=== PATIENT | female | born 1995 | race Caucasian/White ===

== ENCOUNTER 2016-12-12 21:14 | Outpatient (CLI) | payer OTHER | END 2016-12-12 22:50 | disposition home or self-care (01) | LOC: GENOP 21:14 | DX: O42.913 Preterm premature rupture of membranes, unspecified as to length of time between rupture and onset of labor, third trimester (principal); Z3A.34 34 weeks gestation of pregnancy | CPT/HCPCS: 82731; 83518; G0463 ==

== ENCOUNTER 2017-01-09 21:26 | Observation (INO) | payer OTHER ==
[2017-01-09 22:54] LABS: HEMOGLOBIN 10.9 gm/dl (12.3-15.3); RED BLOOD COUNT 3.87 M/UL (4.00-5.10); WHITE BLOOD COUNT 10.6 K/UL (4.5-11.0)
== END 2017-01-10 09:30 | disposition home or self-care (01) ==
LOC: OB 21:26 → GENOP 21:26 → OB 22:27 → GENOP 22:27 → OB 01-10 09:30 → GENOP 01-10 09:30 → EDSTATUS 01-11 13:39
PROVIDERS: Obstetrics & Gynecology; ADMIT Obstetrics & Gynecology
DX: O75.2 Pyrexia during labor, not elsewhere classified (principal); O99.89 Other specified diseases and conditions complicating pregnancy, childbirth and the puerperium; M54.5 Low back pain; Z3A.38 38 weeks gestation of pregnancy; Z88.0 Allergy status to penicillin
CPT/HCPCS: 36415; 81001; 85025; 96360; 96361; G0378; G0379; G0463; J7120

== ENCOUNTER 2017-01-29 04:49 | Inpatient (IN) | payer OTHER ==
[~2017-01-29] VITALS: Ht 157.5 cm; Wt 99.8 kg
[2017-01-29 05:23] LABS: HEMOGLOBIN 10.5 gm/dl (12.3-15.3); RED BLOOD COUNT 3.83 M/UL (4.00-5.10); WHITE BLOOD COUNT 11.5 K/UL (4.5-11.0)
[2017-01-31] MEDS ORDERED: COLACE 100MG C100 MG PO (12:23)
== END 2017-01-31 16:23 | disposition home or self-care (01) | DRG 775 ==
LOC: OB 04:49
PROVIDERS: Obstetrics & Gynecology; ADMIT Obstetrics & Gynecology
PROC: 10907ZC Drainage of Amniotic Fluid, Therapeutic from Products of Conception, Via Natural or Artificial Opening (ICD-10-PCS; principal; 2017-01-29)
PROC: 10E0XZZ Delivery of Products of Conception, External Approach (ICD-10-PCS; 2017-01-29)
PROC: 0KQM0ZZ Repair Perineum Muscle, Open Approach (ICD-10-PCS; 2017-01-29)
PROC: 3E0234Z Introduction of Serum, Toxoid and Vaccine into Muscle, Percutaneous Approach (ICD-10-PCS; 2017-01-29)
PROC: 3E0234Z Introduction of Serum, Toxoid and Vaccine into Muscle, Percutaneous Approach (ICD-10-PCS; 2017-01-31)
DX: O48.0 Post-term pregnancy (principal); Z3A.41 41 weeks gestation of pregnancy; Z37.0 Single live birth; O70.1 Second degree perineal laceration during delivery; O69.81X0 Labor and delivery complicated by cord around neck, without compression, not applicable or unspecified; Z23 Encounter for immunization
CPT/HCPCS: 36415; 51702; 81001; 82800; 85014; 85018; 85025; 85461; 86850; 86900; 86901; 90707; 90715; J2405; J2590; J2790; J2795; J7120

== ENCOUNTER 2021-07-16 12:41 | Emergency (ER) | payer OTHER ==
[~2021-07-16] VITALS: Ht 157.5 cm; Wt 90.7 kg
[~2021-07-16 12:41] MED LIST: COLACE 100MG C100 MG PO; ONDANSETRON ODT4 MG PO; PROTONIX 40 MG40 M1 PO
[2021-07-16 13:49] LABS: HEMOGLOBIN 14.2 gm/dl (12.3-15.3); RED BLOOD COUNT 5.01 M/UL (4.00-5.10); WHITE BLOOD COUNT 11.8 K/UL (4.5-11.0)
[2021-07-16 14:08] LABS: BUN/CREATININE RATIO 11 (0-10)
== END 2021-07-16 15:45 | disposition home or self-care (01) ==
LOC: ER1 12:41
PROVIDERS: Nurse Practitioner
DX: U07.1 COVID-19 (principal); Z23 Encounter for immunization; J45.909 Unspecified asthma, uncomplicated; Z90.49 Acquired absence of other specified parts of digestive tract
CPT/HCPCS: 71045; 80053; 85025; 99283; M0243